=== PATIENT | male | born 1990 | race Hispanic/Latino ===

== ENCOUNTER 2017-08-10 09:46 | Emergency (ER) | payer SELFPAY | END 2017-08-10 10:12 | disposition home or self-care (01) | LOC: EDBD 09:46 → ERS 09:46 | DX: G40.909 Epilepsy, unspecified, not intractable, without status epilepticus (principal); F17.210 Nicotine dependence, cigarettes, uncomplicated; Z91.14 Patient's other noncompliance with medication regimen | CPT/HCPCS: 99284 ==

== ENCOUNTER 2018-08-31 13:41 | Emergency (ER) | payer SELFPAY | END 2018-08-31 14:45 | disposition home or self-care (01) | LOC: ERS 13:41 | DX: R56.9 Unspecified convulsions (principal); F17.210 Nicotine dependence, cigarettes, uncomplicated | CPT/HCPCS: 36416; 96360 ==

== ENCOUNTER 2019-05-24 03:14 | Emergency (ER) | payer SELFPAY | END 2019-05-24 05:10 | disposition home or self-care (01) | LOC: ERS 03:14 | DX: F10.129 Alcohol abuse with intoxication, unspecified (principal); F17.210 Nicotine dependence, cigarettes, uncomplicated | CPT/HCPCS: 96360 ==

== ENCOUNTER 2020-01-10 19:40 | Inpatient (IN) | payer OTHER, SELFPAY ==
[2020-01-10] MEDS ORDERED: Ketamine 50 MG/ML (10ML VIAL) ONE (19:44)
[2020-01-10] MEDS ORDERED: Rocuronium Bromide 10 MG/ML (10ML VIAL) ONE (19:45)
[2020-01-10] MEDS ORDERED: Fentanyl 100 MCG/2 ML VIAL ONE (19:56)
[2020-01-10] MEDS ORDERED: Midazolam HCl 5 mg/ml Vial ONE (19:56)
[2020-01-10] MEDS ORDERED: fentaNYL Citrate/PF 2,000 MCG in Sodium Chloride 0.9% 60 ML IV SCH (20:02)
[2020-01-10] MEDS ORDERED: Propofol 1,000 MG/100 ML VIAL IV ONE (20:02)
[2020-01-10 20:09] LABS: #Basophils 0.1 thou/uL (0.0-0.2); #Eosinphils 0.1 thou/uL (0.0-0.7); #Lymphocytes 3.8 thou/uL (1.20-3.40); #Monocytes 0.6 thou/uL (0.11-0.59); #Neutrophils 3.4 thou/uL (1.40-6.50); %Basophils 0.9 % (0.0-1.0); %Eosinophils 0.6 % (0.0-10.0); %Lymphocytes 47.9 % (21.0-51.0); %Neutrophils 43.5 % (42.0-75.0); Hemoglobin 15.1 g/dL (14.0-18.0); Mean Corpuscular HGB CONC 34.5 g/dL (32.0-36.0); Mean Corpuscular Hemoglobin 33.1 pg (27.0-31.0); Mean Corpuscular Volume 95.8 fL (78.0-98.0); Mean Platelet Volume 7.2 fL (7.4-10.4); Platelet Count 312 thou/uL (130-400); RBC Distribution Width 11.5 % (11.5-14.5); Red Blood Cell (RBC) Count 4.56 mill/uL (4.70-6.10); White Blood Cell (WBC) Count 7.9 thou/uL (4.8-10.8)
--- NOTE | 2020-01-10 20:11 | RAD ---
Exam: Chest one view HISTORY:Altered mental status Comparison: 09/26/2015 FINDINGS: Cardiac silhouette:Normal cardiac silhouette for portable technique Lines and tubes: Endotracheal tube at the level of the clavicles. Nasogastric tube extends beyond the diaphragm Aorta: Unremarkable Pulmonary vessels: Normal Costophrenic angles: Clear LUNGS: Interstitial and alveolar opacities. Pulmonary accentuation may in part be due to diminished l kalie volumes. Pneumothorax: None Osseous abnormalities: None IMPRESSION: 1. Endotracheal and nasogastric tube as above. 2. Diminished lung volumes with accentuation of the lung parenchyma. Infiltrate cannot be excluded.
[2020-01-10 20:16] LABS: Actual Bicarbonate (HCO3a) 21.3 mEq/L (22-28); Analyzer IN Cardio ER; Base Excess (BEa) -5.6 mEq/L (-2.0 to +3.0); CO2 Tension 46.9 mmHg (35.0-45.0); Calcium, Ionized (arterial) 1.18 mmol/L (1.12-1.30); Hemoglobin (Hb) 15.3 g/dL (14.0-18.0); O2 Tension (PaO2), arterial 195.7 mmHg (80.0-100.0); Potassium - ABG Lab 3.98 mmol/L (3.70-5.30); pH, Arterial 7.28 (7.35-7.45)
[2020-01-10 20:18] LABS: ALT (SGPT) 21 U/L (8-55); AST (SGOT) 23 U/L (5-34); Acetaminophen Less than 6.0 mcg/mL (10.0-30.0); Albumin 4.1 g/dL (3.5-5.0); Alcohol 282 mg/dL (Less than 10); Alkaline Phosphatase 66 U/L (40-110); Anion Gap 16 mmol/L (10-20); BUN (Urea Nitrogen) 5 mg/dL (8.9-20.6); Bilirubin, Total 0.8 mg/dL (0.2-1.2); Calc. Creatinine Clearance 0 mL/min (70-130); Calcium 8.6 mg/dL (7.8-10.44); Carbon Dioxide 21 mmol/L (22-29); Chloride 108 mmol/L (98-107); Estimated GFR-MDRD Greater than 90; Globulin 3.1 g/dL (2.4-3.5); Glucose 100 mg/dL (70-105); Protein, Total 7.2 g/dL (6.0-8.3); Salicylate Less than 8.0 mg/dL (15.0-30.0); Sodium 141 mmol/L (136-145)
[2020-01-10 20:22] LABS: ALV-art Gradient 173.475 (0-20); Puncture Site RBA
[2020-01-10 20:31] LABS: Bilirubin Negative (Negative); Blood, Urine Negative (Negative); Clarity Clear (Clear); Glucose, Urine (Dipstick) Normal (Negative); Ketone, Urine Negative (Negative); Leukocyte Negative Leu/uL (Negative); Nitrite Negative (Negative); Protein, Urine (Dipstick) Negative (Neg-Trace); Specific Gravity, Urine 1.003 (1.002-1.036); Urobilinogen Normal mg/dL (Less than 2); pH, Urine 5.5 (5.0-9.0)
[2020-01-10] MEDS ORDERED: Ondansetron PF 4 MG/2 ML Vial IVP PRN (20:33)
[2020-01-10] MEDS ORDERED: Dextrose 5% in Water 1,000 ML IV PRN (20:33)
[2020-01-10] MEDS ORDERED: hydrALAZINE 20 MG/ML VIAL SLOW IVP PRN (20:33)
[2020-01-10] MEDS ORDERED: Dextrose 50% Abboject 50 ML SYRINGE SLOW IVP PRN (20:33)
[2020-01-10 20:34] LABS: Phosphorus 3.6 mg/dL (2.3-4.7)
[2020-01-10 20:41] LABS: Amphetamine Not Detected (NotDetected); Barbiturates Screen Not Detected (NotDetected); Benzodiazepine Screen Not Detected (NotDetected); Cocaine Metabolite Screen Not Detected (NotDetected); Medtox Control Line Valid? VALID (VALID); Medtox Reader # READER 4; Methadone Not Detected (NotDetected); Methamphetamine Not Detected (NotDetected); Opiate Screen Not Detected (NotDetected); Oxycodone Screen Not Detected (NotDetected); Phencyclidine (PCP) Not Detected (NotDetected); THC/Cannabinoid Screen Not Detected (NotDetected); Tricyclic Screen Not Detected (NotDetected)
[2020-01-10] MEDS ORDERED: Lorazepam 2 MG/ML VIAL SLOW IVP PRN (20:41)
[2020-01-10] MEDS ORDERED: Propofol 1,000 MG/100 ML VIAL IV PRN (20:41)
[2020-01-10] MEDS ORDERED: Morphine 2 MG/ML VIAL SLOW IVP PRN (20:41)
[2020-01-10] MEDS ORDERED: Fentanyl BOLUS 250 ML IVPB PRN (20:41)
[2020-01-10] MEDS ORDERED: Propofol BOLUS 1,000 MG/100 ML VIAL IV PRN (20:41)
[2020-01-10] MEDS ORDERED: DISCONTINUE PREVIOUS NARCOTIC PAIN MEDICATIONS AND BENZODIAZEPINES FS SCH (20:41)
[2020-01-10] MEDS ORDERED: Boostrix 0.5 ML VIAL ONE (20:45)
[2020-01-10] MEDS ORDERED: Ventilator Sedation Protocol 1 EACH FS SCH (20:45)
--- NOTE | 2020-01-10 20:45 | CT ---
Exam: Head CT without contrast HISTORY: Level 1 trauma. Suicide attempt. COMPARISON: 12/25/2018 FINDINGS: Hemorrhage: No intraparenchymal hemorrhage or extra-axial hematoma. Brain parenchyma: Cortical petty-white matter differentiation is preserved. No mass effect or midline shift. Basilar cisterns are patent. Ventricular system: Ventricles and sulci are patent and symmetric. Calvarium: Intact. Sinuses and mastoid air cells: Partial opacification of the visualized paranasal sinuses IMPRESSION: No acute intracranial process.
--- NOTE | 2020-01-10 20:48 | CT ---
Exam: CT cervical spine without contrast HISTORY: Trauma. Pain. COMPARISON: 09/11/2014 FINDINGS: No craniocervical dissociation. Appropriate alignment of the lateral masses of C1 and C2. Intact odon toid process Appropriate alignment of the facets. Soft tissue neck structures: No mass, lymphadenopathy or hematoma. No prevertebral soft tissue swelli ng. Upper mediastinum and lung apices: Unremarkable Central spinal canal: Neural foramina and central spinal canal are patent. Evaluation is limited by t echnique Vertebral bodies: Cervical spine vertebral body height is maintained. No fracture. IMPRESSION: No fracture. Results of the head and C-spine CT discussed with Dr. Le 01/10/2020 8:45 PM Code CR
[2020-01-10] MEDS ORDERED: Famotidine 20 MG TAB PO SCH (21:00)
[2020-01-10 21:29] LABS: Carbamazepine-Tegretol Less than 1.9 ug/mL (4.0-12.0)
[2020-01-10] MEDS ORDERED: Potassium Phosphate 15 MMOL in Sodium Chloride 0.9% 250 ML 250 ML IVPB SCH (22:00)
[2020-01-10] MEDS ORDERED: levETIRAcetam In NaCl (Iso-Os) 1,000 MG in Premix Bag 1 BAG IVPB SCH (22:15)
[2020-01-10 22:50] VITALS: BMI 25.9
[2020-01-10] MEDS ORDERED: Famotidine/PF 20 mg/2ml Vial SLOW IVP SCH (23:00)
[2020-01-10] MEDS: Sodium Chloride 0.9% 1,000 ML IV SCH (23:04)
[2020-01-10] MEDS ORDERED: Sodium Chloride 0.9% 500 ML IV SCH (23:15)
[2020-01-11] MEDS ORDERED: Midazolam HCl 2 mg/2 ml Vial ONE (00:45)
[2020-01-11] MEDS: Midazolam HCl 2 mg/2 ml Vial SLOW IVP SCH ×2 (00:45→10:35)
[2020-01-11] MEDS ORDERED: Lorazepam 2 MG/ML VIAL SLOW IVP PRN ×4 (04:05→20:53)
[2020-01-11 04:11] LABS: #Basophils 0.1 thou/uL (0.0-0.2); #Lymphocytes 4.4 thou/uL (1.20-3.40); #Monocytes 0.8 thou/uL (0.11-0.59); #Neutrophils 8.3 thou/uL (1.40-6.50); %Basophils 0.6 % (0.0-1.0); %Eosinophils 0.3 % (0.0-10.0); %Lymphocytes 32.6 % (21.0-51.0); %Monocytes 5.6 % (0.0-10.0); %Neutrophils 60.9 % (42.0-75.0); Hemoglobin 13.4 g/dL (14.0-18.0); Mean Corpuscular HGB CONC 33.8 g/dL (32.0-36.0); Mean Corpuscular Hemoglobin 32.2 pg (27.0-31.0); Mean Corpuscular Volume 95.3 fL (78.0-98.0); Mean Platelet Volume 7.6 fL (7.4-10.4); Platelet Count 271 thou/uL (130-400); RBC Distribution Width 12.1 % (11.5-14.5); Red Blood Cell (RBC) Count 4.17 mill/uL (4.70-6.10); White Blood Cell (WBC) Count 13.6 thou/uL (4.8-10.8)
[2020-01-11 04:29] LABS: Anion Gap 15 mmol/L (10-20); BUN (Urea Nitrogen) 5 mg/dL (8.9-20.6); Calc. Creatinine Clearance 161 mL/min (70-130); Calcium 7.9 mg/dL (7.8-10.44); Carbon Dioxide 20 mmol/L (22-29); Chloride 110 mmol/L (98-107); Estimated GFR-MDRD Greater than 90; Glucose 82 mg/dL (70-105); Magnesium 1.6 mg/dL (1.6-2.6); Phosphorus 3.5 mg/dL (2.3-4.7); Potassium 3.5 mmol/L (3.5-5.1); Sodium 141 mmol/L (136-145)
[2020-01-11] MEDS ORDERED: Lactated Ringer's 1,000 ML IV SCH (07:45)
[2020-01-11] MEDS ORDERED: Magnesium Sulfate 2 GM in Sodium Chloride 0.9% 100 ML IVPB SCH (07:45)
--- NOTE | 2020-01-11 07:45 | RAD ---
Chest one view HISTORY: Intubated. Follow-up. COMPARISON: 01/10/2020. FINDINGS: Cardiac silhouette is magnified by projection. Pulmonary vasculature are unremarkable. Mediastinum is midline. Lines and tubes are unchanged in position. No evidence of pneumothorax or pleural fluid. Parenchymal opacity at the bases on the prior study no longer present. IMPRESSION : Improved aeration of the lungs. No new abnormalities are demonstrated.
[2020-01-11] MEDS: Folic Acid 1 MG TAB PO SCH (07:56)
[2020-01-11] MEDS: Thiamine 100 MG TAB PO SCH (07:59)
[2020-01-11] MEDS: Multivitamin W/ Minerals 1 TAB PO SCH (07:59)
[2020-01-11] MEDS ORDERED: Potassium Phosphate 30 MMOL, Magnesium Sulfate 2 GM in Sodium Chloride 0.9% 250 ML IVPB SCH (08:00)
[2020-01-11 08:10] LABS: ALV-art Gradient 113.575 (0-20); Actual Bicarbonate (HCO3a) 21.1 mEq/L (22-28); Base Excess (BEa) -1.6 mEq/L (-2.0 to +3.0); CO2 Tension 30.1 mmHg (35.0-45.0); Calcium, Ionized (arterial) 1.13 mmol/L (1.12-1.30); Carboxyhemoglobin (COHb) 0.5 gm% (0.0-3.0); Hemoglobin (Hb) 14.2 g/dL (14.0-18.0); Potassium - ABG Lab 3.34 mmol/L (3.70-5.30); Puncture Site RRA; pH, Arterial 7.46 (7.35-7.45)
[2020-01-11] MEDS ORDERED: Famotidine/PF 20 mg/2ml Vial SLOW IVP SCH (09:00)
[2020-01-11] MEDS: Sodium Chloride 0.9% 1,000 ML IV SCH (10:44)
[2020-01-11 12:00] LABS: SARS-CoV-2 MS2 Positive; SARS-CoV-2 N Gene Negative; SARS-CoV-2 S Gene Negative; SARS-CoV-2 by NAA Not Detected (NotDetected); SARS-CoV-2 orf1ab Negative
[2020-01-11] MEDS ORDERED: Lorazepam 2 MG/ML VIAL SLOW IVP SCH (13:00)
[2020-01-11] MEDS ORDERED: Midazolam HCl 2 mg/2 ml Vial SLOW IVP SCH (13:00)
--- NOTE | 2020-01-11 13:16 | HP ---
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 He was over his cousin's house. They report he had about three beers, was behaving appropriately when he disappeared from the view for 10 minutes more or less. When they went out in the front guard to check on him, they found him lying beside the truck with his left wrist cut and some blood around the scene and him to be unconscious. They did witness him and they did load him into a private vehicle and transported him to the hospital, noting he was making some groaning noises and breathing on his own en route. They do report that he has a seizure disorder, does not know exactly what he takes for seizures and does not know whether he was taking the medications or not, he used the [facility]. In the emergency room, when he was received, he was noted to be apneic and unresponsive, GCS of 3. He was noted to be tachycardic. He was given 1 unit of blood, although his blood pressure was normal at 140/72. He was RSI and intubated. A level one activation was initiated. The patient remains hemodynamically stable. There was no noted seizure activity. When I arrived, the patient is intubated. He has a bandage over his left wrist. He is unresponsive. Pupils are equally, round, and reactive. Lungs clear to auscultation. Cardiac, regular rate and rhythm without murmur or gallop. Abdomen is soft, nontender, nondistended. No evidence of extremity trauma except for left wrist, where dressing was removed and there was noted to be a laceration of left wrist extending from the medial to lateral skin and subcutaneous tissue. Underlying tendon structure seemed to be intact. Radial artery was intact. There were palpable radial and ulnar pulses. Bandage was reapplied. Prior to my arrival, chest x-ray was obtained, revealing good endotracheal tube placement. Family is present and we discussed with the family his past history. They report that he does not have any allergies, he does smoke daily, he does drink alcohol occasionally. As stated above, he probably had 3 beers at their home and they believe he has probably been drinking alcohol prior to arrival. PAST SURGICAL AND MEDICAL HISTORY: Noncontributory except for his seizure disorder. LABORATORY DATA: By the time of this dictation of this note, his white count is 7.9, hemoglobin 15.1. Basic metabolic profile is normal. Alcohol is 282. Urine drug screen is pending. Rutledge catheter in place, clear yellow urine. ASSESSMENT AND PLAN: 1. Self-induced laceration of left wrist. Family reports there has been no known history of past suicidal ideation or gestures. This is his first demonstration of a suicide attempt. The patient has a GCS of 3, intubated currently. There is no response to pain. Plan to continue observation and observe him. We will await for his urine drug screen. 2. Suicide ideation. Appropriate precautions once extubated. Job ID: [id number]
[2020-01-11] MEDS: Oxazepam 10 MG CAP PO SCH ×2 (14:50→22:40)
--- NOTE | 2020-01-11 17:07 | PRG ---
DATE OF SERVICE: 01/11/2020 SUBJECTIVE: The patient was re-evaluated this evening in the ICU after admission as a level 1 trauma activation. He is still intubated and on minimal sedation. Upon evaluating the patient with sternum rub, he did wake up and sit up and tried to self extubate. He would not follow commands, but he was moving all of his extremities and strength was normal. His eyes were open. He did receive additional sedation with propofol, fentanyl, and then finally Versed before he calmed down. He continues mechanical ventilatory support at this time. OBJECTIVE: VITAL SIGNS: Temperature 98.2, pulse 77, respirations 17, oxygen saturation 98% on FiO2 40% on the ventilator, and blood pressure 96/58. GENERAL: Well-appearing young male, lying in bed, intubated and sedated with no signs of acute pulmonary distress. PULMONARY: Equal chest rise and fall. Clear breath sounds bilaterally. No signs of acute respiratory distress. CARDIAC: Regular rate and rhythm. GI: Abdomen is soft, nontender, nondistended. EXTREMITIES: 2+ pulses in all extremities. Gross normal sensation is intact. No significant swelling noted. Laceration to left wrist has been repaired with no bleeding noted. NEUROLOGIC: GCS; eyes 4, verbal 1t, and motor is 5. ASSESSMENT: 1. Status post left wrist laceration. 2. Altered mental status likely due to seizures, the patient currently noncompliant with medication for years. 3. Acute alcohol intoxication. 4. Respiratory failure due to acute alcohol intoxication and probably postictal state from seizure. 5. History of seizures. PLAN: Continue intubation and sedation overnight. He will likely be extubated tomorrow if he is able to follow commands and once his alcohol intoxication has resolved. Continue NG tube to suction. Monitor left wrist laceration. The patient has received tetanus and Ancef and is also received a loading dose of Keppra. The patient's nurse reported that his called and states he has not been taking his anti-seizure medication for over a year. Replace magnesium and phosphorus. This patient was evaluated by Dr. Fu in the emergency department and once I re-evaluated him in the ICU, I did also speak with Dr. Marlow about the patient and he is aware. Job ID: [id number]
--- NOTE | 2020-01-11 19:35 | CON ---
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 History is obtained from review of the medical records since the patient is very somnolent and unable to provide the history. Per records, he has been going through divorce, with 4 children. Today, he was at his cousin's house and was behaving appropriately. Then, he disappeared for about 10 minutes and they found him lying on the side of the truck with his left wrist cut, and he was unconscious, so they brought him to the emergency room . He was apneic and unresponsive and was intubated to protect his airway.. He does have history of seizure disorder and also history of alcohol abuse. ROS: Unobtainable due to mental status PAST MEDICAL HISTORY: Seizure disorder. PAST SURGICAL HISTORY: None. SOCIAL HISTORY: He is going through divorce and has 4 children. He works as a superintendent construction. He does have history of alcohol abuse. ALLERGIES: NO KNOWN DRUG ALLERGIES. PHYSICAL EXAMINATION: VITAL SIGNS: Blood pressure is 140/72, pulse 82, respiratory rate 18. CARDIOVASCULAR SYSTEM: Regular rate and rhythm. CHEST: Clear. ABDOMEN: Soft. NECK: Supple. NEUROLOGIC: Mental status: The patient is somnolent, oriented to himself and place. He follows commands intermittently. Speech is clear. Motor: Muscle tone and bulk are normal. Strength is 5/5 bilaterally. Sensory: Intact. Cranial nerves 2 through 12 intact. Cerebellar: Finger-nose testing intact. Gait: Deferred due to the patient's safety reasons. DATA REVIEWED: I reviewed the CT scan, which was negative for acute intracranial pathology. ASSESSMENT AND PLAN: Mr. Schreiber is a 29-year-old male who was consulted because of altered mental status. He has history of seizure disorder and has been noncompliant with the medication and has history of alcohol abuse. He was successfully intubated. He is status post wrist laceration. He received a loading dose of Keppra. Continue Keppra 750 mg twice daily to prevent seizures. Neurochecks every 4 hours. Observe seizure precautions. Ativan 2 mg IV for seizures greater than 2 minutes. We will arrange for electroencephalogram to rule out cortical irritability, which may require adjustment of the medication. Continue medical management per primary team. We will continue to follow. Thank you for the consult. Job ID: [id number] MTDD
[2020-01-11] MEDS ORDERED: Acetaminophen 500 MG TAB PO PRN (20:55)
--- NOTE | 2020-01-11 22:19 | PRG ---
DATE OF SERVICE: 01/11/2020 SUBJECTIVE: Mr. Schreiber is a 29-year-old man who was admitted yesterday following a self-induced left wrist laceration. The patient was apparently intubated finding initial Shaye Coma Scale of 3, which apparently was following a seizure disorder with likely postictal state. This morning, he is awake, alert, on mechanical ventilator support. Urinary output adequate for the patient's age and weight. OBJECTIVE: VITAL SIGNS: This morning included blood pressure 137/85, pulse 83, respiratory rate 22, temperature 97.8 degrees Fahrenheit, oxygen saturation 98% on FiO2 of 30%. HEENT: Pupils are equal, round, reactive to light bilaterally. HEART: Reveals regular rate and rhythm. No murmurs or gallops auscultated. LUNGS: Clear to auscultation bilaterally. Breathing, regular and nonlabored. ABDOMEN: Soft, nontender, nondistended. EXTREMITIES: The left wrist laceration is inspected. Wound remains well approximated. No drainage or underlying hematoma present. NEUROLOGIC: Reveals no focal deficits present. LABORATORY FINDINGS: Include a CBC with 13,600 white blood cells, hemoglobin and hematocrit 13.4 and 39.7 respectively. Platelet count is 271,000. Metabolic profile; sodium 141, potassium 3.5, chloride is 110, bicarb 20, BUN 5, creatinine 0.77, glucose 82, magnesium 1.6, phosphorus 3.5. Prolactin level was 13.13. IMPRESSION: 1. Post injury, status post self-inflicted wound to left wrist and apparent suicide attempt. 2. History of epileptic seizures. 3. The patient was successfully extubated. 4. Shortly after extubation, the patient developed acute episode of generalized tonic-clonic seizure, which was terminated with midazolam. Within 1 hour of that, he had another episode of seizure at this time and was terminated with Ativan. He is on Keppra for seizure prophylaxis. 5. He has otherwise remained hemodynamically stable. PLAN: 1. We will continue to increase activity per Physical and Occupational Therapy. 2. We will ask Neurology to evaluate the patient for recommendations on management of this patient's chronic seizure disorder, although the patient apparently is noncompliant with his treatment. Total critical care time is 35 minutes. Job ID: [id number]
--- NOTE | 2020-01-12 02:08 | PRG ---
DATE OF SERVICE: 01/11/2020 SUBJECTIVE: The patient was seen this evening during rounds. He was easily arousable. The patient is status post multiple seizures today. He is awake and alert. GCS 15. Reports that he cut his own wrist in an attempt for suicide yesterday using a knife. Reports no previous attempts and no previous suicidal ideations until that time. Denies homicidal ideations as well as auditory and visual hallucinations. He reports he does not have a firearm at his home and has not had suicidal ideations previously. He reports no complaints at the time of my evaluation. OBJECTIVE: VITAL SIGNS: Temperature 97.6, pulse 76, respirations 18, oxygen saturation 96% on room air, and blood pressure 140/85. GENERAL: Well-appearing young male, sitting up in bed with no signs of acute distress. PULMONARY: Equal chest rise and fall. No signs of acute respiratory distress. CARDIAC: Regular rate and rhythm. GI: Abdomen is soft, nontender, nondistended. EXTREMITIES: 2+ pulses in all extremities. Gross motor and sensation are intact. No significant swelling noted. A 6 cm laceration to the left wrist is closed, dry, and intact with no signs of bleeding. NEURO: GCS is 15. ASSESSMENT: 1. Status post seizure and left wrist laceration, self-inflicted. 2. Uncontrolled seizures. 3. Acute alcohol intoxication, resolved. 4. Suicidal ideations. 5. History of seizures, noncompliant with his medications. PLAN: Continue current clear liquid diet, advance as tolerated. Discontinue IV fluids. Continue Keppra as recommended by Dr. Laguerre of Neurology. [facility] to evaluate when patient is medically ready. P.ralana Ativan for seizures lasting greater than 2 minutes. Job ID: [id number]
[2020-01-12] MEDS: Oxazepam 10 MG CAP PO SCH ×3 (05:12→21:57)
[2020-01-12 05:17] LABS: #Basophils 0.1 thou/uL (0.0-0.2); #Eosinphils 0.1 thou/uL (0.0-0.7); #Lymphocytes 2.7 thou/uL (1.20-3.40); #Monocytes 0.7 thou/uL (0.11-0.59); #Neutrophils 6.6 thou/uL (1.40-6.50); %Basophils 0.5 % (0.0-1.0); %Eosinophils 1.1 % (0.0-10.0); %Lymphocytes 26.6 % (21.0-51.0); %Monocytes 7.2 % (0.0-10.0); %Neutrophils 64.6 % (42.0-75.0); Hemoglobin 14.6 g/dL (14.0-18.0); Mean Corpuscular HGB CONC 33.7 g/dL (32.0-36.0); Mean Corpuscular Hemoglobin 32.3 pg (27.0-31.0); Mean Corpuscular Volume 95.7 fL (78.0-98.0); Mean Platelet Volume 7.4 fL (7.4-10.4); Platelet Count 256 thou/uL (130-400); RBC Distribution Width 11.7 % (11.5-14.5); Red Blood Cell (RBC) Count 4.52 mill/uL (4.70-6.10); White Blood Cell (WBC) Count 10.3 thou/uL (4.8-10.8)
[2020-01-12 05:40] LABS: Anion Gap 13 mmol/L (10-20); BUN (Urea Nitrogen) 7 mg/dL (8.9-20.6); Calc. Creatinine Clearance 163 mL/min (70-130); Calcium 8.5 mg/dL (7.8-10.44); Carbon Dioxide 24 mmol/L (22-29); Chloride 102 mmol/L (98-107); Estimated GFR-MDRD Greater than 90; Glucose 94 mg/dL (70-105); Phosphorus 3.5 mg/dL (2.3-4.7); Potassium 3.7 mmol/L (3.5-5.1); Sodium 135 mmol/L (136-145)
[2020-01-12] MEDS: Multivitamin W/ Minerals 1 TAB PO SCH (09:31)
[2020-01-12] MEDS: Thiamine 100 MG TAB PO SCH (09:31)
[2020-01-12] MEDS: Folic Acid 1 MG TAB PO SCH (09:31)
--- NOTE | 2020-01-12 14:57 | PRG ---
DATE OF SERVICE: 01/12/2020 SUBJECTIVE: The patient was seen this morning on the surgical floor during rounds. He is lying in bed comfortably with family member at bedside as well as hospital sitter. The patient is status post multiple seizures yesterday. Currently, awake and alert with GCS of 15. The patient reports that he does not feel like eating because he is "not hungry." The patient denies any other complaints. OBJECTIVE: VITAL SIGNS: Temperature 98.8 Fahrenheit, pulse 67, respirations 16 , SpO2 of 97% on room air, and blood pressure 116/74. GENERAL: Well-appearing male, lying in bed with no signs of acute distress. RESPIRATORY: Equal chest rise and fall. No signs of acute respiratory distress. CARDIAC: Regular rate, regular rhythm. ABDOMEN: Soft, nontender, nondistended. EXTREMITIES: Left wrist laceration with sutures in place, well approximated. Area is clean, dry, and intact. NEURO: No focal deficits. GCS 15. LABORATORY STUDIES: WBC 10.3, RBC 4.52, hemoglobin 14.6, hematocrit 43.3, platelets 256. Sodium 135, potassium 3.7, chloride 102, carbon dioxide 24, BUN 7, creatinine 0.76, estimated GFR greater than 90, glucose 94, calcium 8.5, phosphorus 3.5, magnesium 2.0. DIAGNOSTIC STUDIES: No new diagnostics to review. ASSESSMENT: 1. Status post multiple seizures, history of epileptic seizure disorder with noncompliance in medications. 2. Status post self-inflicted wound to left wrist with apparent suicide attempt. 3. Acute alcohol intoxication, resolved. 4. Suicidal ideations. PLAN: We will advance diet to regular diet and add on ensure supplement t.i.d. scheduled. Continue activity with physical and occupational therapy. Dr. Laguerre recommendation to continue Keppra. She is to perform an EEG study on the patient today. The patient is medically clear for [facility] evaluation later today. The patient has p.r.n. Ativan available for seizures that lasts greater than 2 minutes. The patient was seen by Dr. Marlow during morning rounds with the above plan discussed. Job ID: [id number] MTDD
--- NOTE | 2020-01-12 15:39 | PDOC.NEUPN ---
- Subjective Encounter Date: 01/12/20 Subjective: Patient somnolent but follows commands. EEG negative for seizure activity. - Objective Vital Signs & Weight: Vital Signs (12 hours) Temp Pulse Resp BP Pulse Ox 01/12/20 11:47 98.8 F 67 16 116/74 97 01/12/20 07:24 98.3 F 71 18 127/75 96 01/12/20 06:56 59 L 14 98 01/12/20 05:14 98.5 F 65 18 112/73 96 Weight Weight 180 lb 5.41 oz Most Recent Monitor Data Heart Rate from ECG 57 NIBP 130/80 NIBP BP-Mean 96 Respiration from ECG 19 SpO2 99 I&O: 01/11/20 01/12/20 01/13/20 06:59 06:59 06:59 Intake Total 2227 1582.1 Output Total 920 1080 Balance 1307 502.1 Result Diagrams: 01/12/20 05:03 01/12/20 05:03 Additional Labs: Accuchecks 01/12/20 01/12/20 01/11/20 13:27 05:28 22:32 POC Glucose 135 H 102 88 01/11/20 01/11/20 18:24 13:02 POC Glucose 97 93 Radiology Reviewed by me: Yes EKG Reviewed by me: Yes ROS - Review of Systems Constitutional: denies: fever, chills, sweats, weakness, malaise, other Eyes: denies: pain, vision change, conjunctivae inflammation, eyelid inflammation, redness, other ENT: denies: ear pain, ear discharge, nose pain, nose discharge, nose congestion , mouth pain, mouth swelling, throat pain, throat swelling, other Respiratory: denies: cough, dry, shortness of breath, hemoptysis, SOB with excertion, pleuritic pain, sputum, wheezing, other Cardiovascular: denies: no pertinent history, AFIB, CAD, CHF, HTN, MO, Syncope, Hyperlipidemia, Mitral valve stenosis, Aortic stenosis, Valve insufficiency, Pulmonary hypertension, Other Gastrointestinal: denies: nausea, vomiting, abdominal pain, diarrhea, constipation, melena, hematochezia, other Musculoskeletal: denies: neck pain, shoulder pain, arm pain, back pain, hand pain, leg pain, foot pain, other Skin: denies: rash, lesions, brenton, bruising, other - Medication Medications: Active Medications Generic Name Dose Route Start Last Admin Trade Name Skylerq PRN Reason Stop Dose Admin Folic Acid 1 mg 01/11/20 09:00 01/12/20 09:31 Folvite PO 1 mg DAILY TOI Administration Levetiracetam 750 mg/ Sodium 107.5 mls @ 215 mls/hr 01/11/20 21:00 01/12/20 09:28 Chloride IVPB 107.5 mls BID TOI Administration Iron/Minerals/Multivitamins 1 tab 01/11/20 09:00 01/12/20 09:31 Theragran M PO 1 tab DAILY TOI Administration Ondansetron HCl 4 mg 01/10/20 20:33 01/11/20 13:52 Zofran IVP 4 mg Q6H PRN Administration Nausea Oxazepam 10 mg 01/11/20 14:00 01/12/20 14:27 Serax PO 10 mg Q8HR TOI Administration Thiamine HCl 100 mg 01/11/20 09:00 01/12/20 09:31 Thiamine PO 100 mg DAILY TOI Administration - Exam General Appearance: NAD Eye: PERRL ENT: normocephalic atraumatic Neck: supple Respiratory: CTAB Cardiovascular: RRR Gastrointestinal: soft Extremities: no cyanosis Skin: normal turgor Neurological: no focal deficits PSYCH: A&O x 3 Results - Labs Result Diagrams: 01/12/20 05:03 01/12/20 05:03 Lab results: WBC 10.3 thou/uL (4.8-10.8) 01/12/20 05:03 Hgb 14.6 g/dL (14.0-18.0) 01/12/20 05:03 Hct 43.3 % (42.0-52.0) 01/12/20 05:03 MCV 95.7 fL (78.0-98.0) 01/12/20 05:03 Plt Count 256 thou/uL (130-400) 01/12/20 05:03 Neutrophils % 64.6 % (42.0-75.0) 01/12/20 05:03 ABG pH 7.46 (7.35-7.45) H 01/11/20 08:00 ABG pCO2 30.1 mmHg (35.0-45.0) L 01/11/20 08:00 ABG pO2 134.0 mmHg (80.0-100.0) H 01/11/20 08:00 Sodium 135 mmol/L (136-145) L 01/12/20 05:03 Potassium 3.7 mmol/L (3.5-5.1) 01/12/20 05:03 Chloride 102 mmol/L (98-107) 01/12/20 05:03 Carbon Dioxide 24 mmol/L (22-29) 01/12/20 05:03 BUN 7 mg/dL (8.9-20.6) L 01/12/20 05:03 Creatinine 0.76 mg/dL (0.7-1.3) 01/12/20 05:03 Glucose 94 mg/dL (70-105) 01/12/20 05:03 Lactic Acid 2.0 mmol/L (0.5-2.2) 01/10/20 23:02 Calcium 8.5 mg/dL (7.8-10.44) 01/12/20 05:03 Total Bilirubin 0.8 mg/dL (0.2-1.2) 01/10/20 19:43 AST 23 U/L (5-34) 01/10/20 19:43 ALT 21 U/L (8-55) 01/10/20 19:43 Alkaline Phosphatase 66 U/L (40-110) 01/10/20 19:43 Serum Total Protein 7.2 g/dL (6.0-8.3) 01/10/20 19:43 Albumin 4.1 g/dL (3.5-5.0) 01/10/20 19:43 Urine Ketones Negative mg/dL (Negative) 01/10/20 20:11 Urine Blood Negative (Negative) 01/10/20 20:11 Urine Nitrite Negative (Negative) 01/10/20 20:11 Ur Leukocyte Esterase Negative Jeannine/uL (Negative) 01/10/20 20:11 - Radiology Interpretation CT scan - head Additional Comment: Negative for acute intracranial process PN A/P (1) Suicide attempt Status: Acute (2) Seizure disorder Code(s): G40.909 - EPILEPSY, UNSP, NOT INTRACTABLE, WITHOUT STATUS EPILEPTICUS Status: Acute - Plan Daily Plan: PT/OT 29 year old with suicide attempt and altered mental status. History significant for seizure disorder. EEG reviewed which was negative for seizure activity. Observe seizure precautions. Continue Keppra 750 mg po bid. Ativan 2 mg IV for seizure greater than 2 minutes. Continue home medications. PT/OT/Speech. Continue medical management per primary team..
--- NOTE | 2020-01-13 01:44 | PRG ---
DATE OF SERVICE: 01/12/2020 SUBJECTIVE: This is a 29-year-old male status post self-inflicted wound to the left wrist. Upon my evaluation this evening, the patient appears to be sleeping. Sitter is at bedside. Nursing staff reports no concerns or questions. There are no reports of any further seizure-like activity. OBJECTIVE: VITAL SIGNS: The patient is afebrile. Vital signs as documented in the electronic medical record. Physical exam is grossly unchanged from earlier progress note today. ASSESSMENT: As documented in progress note dated 01/12/2020. PLAN: Continue supportive care as ordered. Continue sitter at bedside. Continue Keppra as ordered. Job ID: [id number]
[2020-01-13] MEDS: Oxazepam 10 MG CAP PO SCH ×3 (05:25→20:52)
[2020-01-13] MEDS: Folic Acid 1 MG TAB PO SCH (10:28)
[2020-01-13] MEDS: Thiamine 100 MG TAB PO SCH (10:28)
[2020-01-13] MEDS: Multivitamin W/ Minerals 1 TAB PO SCH (10:28)
[2020-01-13] MEDS: Insulin Regular 300 UNITS/3 ML VIAL SC PRN ×2 (13:40→17:26)
--- NOTE | 2020-01-13 16:43 | PRG ---
DATE OF SERVICE: 01/13/2020 SUBJECTIVE: The patient was seen during morning rounds. Awake, alert, in no distress. The patient has a sitter and family member at bedside. The patient was evaluated by [facility], who recommended inpatient hospitalization due to his suicidal attempt. The patient is more alert today. The patient has not had any seizure-like activity. The patient voices no complaints or concerns at this time. The patient has been walking. OBJECTIVE: VITAL SIGNS: Temperature 98.5, pulse 54, respirations 16, SpO2 of 97% on room air, and blood pressure 114/62. GENERAL: Young male, awake, alert, in no distress. HEENT: Head is atraumatic and normocephalic. RESPIRATORY: Equal chest rise and fall, no respiratory distress. CARDIAC: Mildly bradycardic, regular rate. ABDOMEN: Soft, nontender, and nondistended. EXTREMITIES: Moves all extremities. Sutures to left wrist in place, neurovascularly intact x4. ASSESSMENT: 1. Status post suicide attempt. 2. 6-cm left wrist laceration, repaired. 3. Chronic seizures. 4. Alcohol abuse. PLAN: Continue sitter at all times. Seizure precautions. Continue Keppra. Supportive care and walking program. The patient is pending placement to psych facility in [place]. The patient is medically cleared and ready for discharge at this time. The patient was examined by Dr. Marlow during morning rounds. Job ID: [id number]
[2020-01-14] MEDS: Oxazepam 10 MG CAP PO SCH ×3 (05:46→21:18)
--- NOTE | 2020-01-14 08:52 | EEG ---
DATE OF SERVICE: 01/12/2020 ATTENDING PHYSICIAN: Cara Laguerre MD. This EEG was performed using 24-channel [employer] video digital EEG machine with 24-disk electrodes. This was an extended 2 hours 6 minutes of inpatient video EEG recording. Digital analysis of the EEG was done for spike and seizure detection, which revealed no abnormalities. BACKGROUND: The posterior background rhythm was not observed. Low amplitude EEG with excessive beta activity intermixed with the background. HYPERVENTILATION: Not performed. PHOTIC STIMULATION: Not performed. SLEEP: No stage change was observed. EEG DIAGNOSIS: Absence of posterior background rhythm. CLINICAL INTERPRETATION: This EEG is consistent with mild generalized nonspecific cerebral dysfunction. Job ID: [id number]
[2020-01-14] MEDS: Thiamine 100 MG TAB PO SCH (08:56)
[2020-01-14] MEDS: Multivitamin W/ Minerals 1 TAB PO SCH (08:56)
[2020-01-14] MEDS: Folic Acid 1 MG TAB PO SCH (08:56)
--- NOTE | 2020-01-14 18:04 | PRG ---
DATE OF SERVICE: 01/14/2020 SUBJECTIVE: The patient was seen during morning rounds, awake, alert, no distress. The patient has a sitter and his at bedside currently. The patient has not had any seizure-like activity since he was moved to the surgical floor. The patient was evaluated by [facility], who recommended inpatient hospitalization due to suicidal attempt. Nursing staff attempted to do nurse to nurse to the facility in [place], but was unable to reach them. It was reported that an approval was and MR had to re-evaluate the patient in order for them to accept him again. The patient voices no complaints or concerns at this time. He has been walking with a walking program and tolerating a diet. OBJECTIVE: VITAL SIGNS: Blood pressure 117/57, pulse 66, temperature 97.9, respirations 18, SpO2 of 98% on room air. GENERAL: Young male, awake, alert, no distress. HEENT: Head is atraumatic and normocephalic. Mucous membranes are moist. RESPIRATORY: Equal chest rise and fall, no respiratory distress. CARDIAC: Regular rate and regular rhythm. EXTREMITIES: Moves all extremities, sutures well approximated in the left wrist, no signs of redness or infection, neurovascularly intact in all extremities. The patient has good sensation and range of motion in his left hand. ASSESSMENT: 1. Status post suicide attempt. 2. 6 cm left wrist laceration, status post repair with sutures. 3. Chronic seizures. 4. Alcohol abuse. PLAN: Continue sitter at all times. Seizure precautions. Continue Keppra. Supportive care and walking program. The patient is pending placement to psych facility in [place]. The patient is medically cleared and ready for discharge at this time. Job ID: [id number]
[2020-01-15] MEDS: Oxazepam 10 MG CAP PO SCH (05:12)
[2020-01-15] MEDS: Folic Acid 1 MG TAB PO SCH (08:56)
[2020-01-15] MEDS: Thiamine 100 MG TAB PO SCH (08:56)
[2020-01-15] MEDS: Multivitamin W/ Minerals 1 TAB PO SCH (08:56)
[2020-01-15 11:59] VITALS: BP 119/63; TEMP 97.9
[2020-01-15] MEDS ORDERED: levETIRAcetam 500 MG TAB PO SCH (21:00)
--- NOTE | 2020-01-16 12:56 | EKG ---
Test Reason : Blood Pressure : / mmHG Vent. Rate : 118 BPM Atrial Rate : 118 BPM P-R Int : 136 ms QRS Dur : 088 ms QT Int : 318 ms P-R-T Axes : 044 073 050 degrees QTc Int : 445 ms Sinus tachycardia Otherwise normal ECG Confirmed by BAKARI CASTLE ([id number]), publications editor RACH WEST ([id number]) on 01/16/2020 12:55:54 PM Referred By: Confirmed By:BAKARI Lockwood
--- NOTE | 2020-01-18 12:31 | DIS ---
DATE OF ADMISSION: 01/10/2020 DATE OF DISCHARGE: 01/15/2020 ADMISSION DIAGNOSES: Altered mental status, laceration to the left wrist, and alcohol intoxication. DISCHARGE DIAGNOSES: Altered mental status, laceration to the left wrist, alcohol intoxication, and uncontrolled seizures. CONSULTING PHYSICIAN: Dr. Laguerre of Neurology. PROCEDURES: None. HOSPITAL COURSE: The patient is a 29-year-old male presented to the emergency department via family transport after he was found unresponsive outside of the family home. The patient had a superficial laceration to the left wrist. Upon arrival to the emergency department, he was activated as a level 1 trauma activation. Emergency room physician intubated the patient and placed a tourniquet on the left upper extremity. The patient was found to have injuries including a 6 cm superficial left wrist laceration, which was repaired. He was admitted to the ICU. Subsequently, he was extubated the next day. The patient had several tonoclonic seizures that were resolved by benzos IV. He was also placed on Keppra b.i.d. upon his presentation as there was suspicion at that point the patient had a seizure and was postictal. The patient's family reported the patient was not compliant with his antiseizure medications. Upon evaluation of the patient after extubation, he reported that he attempted to commit suicide by cutting his wrists, that was his first attempt. Family reports that he is from his and has children. [facility] evaluated the patient and recommended discharge to an inpatient psych facility. DISCHARGE DISPOSITION: [facility]. DISCHARGE CONDITION: Satisfactory. PHYSICAL EXAMINATION: VITAL SIGNS: Temperature 97.9, pulse 72, respirations 18, oxygen saturation 97% on room air, and blood pressure 119/63. GENERAL: Well-appearing young male, sitting up in bed with no signs of acute distress. PULMONARY: Equal chest rise and fall. Clear breath sounds bilaterally. No signs of acute respiratory distress. CARDIAC: Regular rate and rhythm. EXTREMITIES: 2+ pulses in all extremities. Gross motor and sensation are intact. Normal strength throughout extremities. No deficits noted in the motor and sensation of the left upper extremity. 6 cm left wrist wound well healing and approximated with sutures in place. No signs of infection. NEUROLOGIC: GCS is 15. DISCHARGE INSTRUCTIONS: The patient was discharged to inpatient psych facility. Activity as tolerated. Regular diet. He is to have wound care to the left upper extremity with sutures out after 14 days. DISCHARGE MEDICATION: Include Keppra 750 mg b.i.d. FOLLOWUP: Followup appointments will be with Dr. Laguerre of Neurology. No followup needed with Dr. Marlow. This is a summary of the patient's hospitalization. For full details, please see his medical record in its entirety. The patient was seen and evaluated by myself on the day of discharge. Job ID: [id number]
== END 2020-01-15 13:24 | DRG 208 ==
LOC: ERS 19:40 → CCU 19:41 → SURG B 01-11 19:08
PROVIDERS: ADMIT Specialist; ATTEND Specialist
PROC: 0BH17EZ Insertion of Endotracheal Airway into Trachea, Via Natural or Artificial Opening (ICD-10-PCS; principal; 2020-01-10)
PROC: 5A1935Z Respiratory Ventilation, Less than 24 Consecutive Hours (ICD-10-PCS; 2020-01-10)
PROC: 0JQH3ZZ Repair Left Lower Arm Subcutaneous Tissue and Fascia, Percutaneous Approach (ICD-10-PCS; 2020-01-10)
DX: J96.90 Respiratory failure, unspecified, unspecified whether with hypoxia or hypercapnia (principal); R40.2342 Coma scale, best motor response, flexion withdrawal, at arrival to emergency department; R40.2122 Coma scale, eyes open, to pain, at arrival to emergency department; R40.2212 Coma scale, best verbal response, none, at arrival to emergency department; T14.91XA Suicide attempt, initial encounter; X78.1XXA Intentional self-harm by knife, initial encounter; F32.9 Major depressive disorder, single episode, unspecified; F17.210 Nicotine dependence, cigarettes, uncomplicated; S61.512A Laceration without foreign body of left wrist, initial encounter; F10.129 Alcohol abuse with intoxication, unspecified; G40.909 Epilepsy, unspecified, not intractable, without status epilepticus; Z20.828 Contact with and (suspected) exposure to other viral communicable diseases
CPT/HCPCS: 12032; 31500; 36415; 36416; 36430; 51702; 70450; 71045; 72125; 80048; 80053; 80156; 80306; 80307; 81003; 82805; 83605; 83735; 84100; 84145; 84146; 85025; 86850; 86900; 86901; 87635; 90471; 90715; 93005; 94002; 94003; 94640; 95712; 95816; 95819; 95957; 96361; 96365; 96366; 96368; 96374; 96375; 99292; J0690; J1815; J1953; J2060; J2250; J2405; J2704; J3010; J3475; J3490; J7030; J7050; J7620; P9016; S0028; U0003

== ENCOUNTER 2020-03-13 15:18 | Emergency (ER) | payer SELFPAY | END 2020-03-13 15:55 | disposition home or self-care (01) | LOC: ERS 15:18 | DX: R56.9 Unspecified convulsions (principal); F17.210 Nicotine dependence, cigarettes, uncomplicated | CPT/HCPCS: 99284 ==